=== PATIENT | female | born 1995 | race Caucasian/White ===

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

== ENCOUNTER 2021-12-02 03:51 | Inpatient (IN) | payer MEDICAID, BC ==
[~2021-12-02 03:51] MED LIST: Oxytocin/Lactated Ringers 20 UNIT/1,000 ML BAG IV SCH; ceFAZolin 2 GM in Sodium Chloride 0.9% 50 ML IV ONE
[2021-12-02] MEDS: Lactated Ringers 1,000 ML IV SCH ×2 (05:20→06:00)
[2021-12-02] MEDS ORDERED: Bupivacaine 0.5% 30 ML SDV ONE ×2 (06:36→06:55)
[2021-12-02] MEDS ORDERED: Metoclopramide 10 MG/2 ML SDV IVPUSH ONE (06:45)
[2021-12-02] MEDS ORDERED: Citric Acid/Sodium Citrate Solution 30 ML Cup PO ONE (06:45)
[2021-12-02] MEDS ORDERED: Morphine PF 10 MG/10 ML SDV ONE (06:48)
[2021-12-02] MEDS ORDERED: Ondansetron 4 MG/2 ML SDV ONE (06:53)
[2021-12-02] MEDS ORDERED: fentaNYL 100 MCG/2 ML SDV IVPUSH PRN (06:58)
[2021-12-02] MEDS ORDERED: diphenhydrAMINE 50 MG/ML SDV IVPUSH PRN ×2 (06:58→09:50)
[2021-12-02] MEDS ORDERED: Ondansetron 4 MG/2 ML SDV IVPUSH PRN (06:58)
[2021-12-02] MEDS ORDERED: Oxytocin 10 Units/1 ML SDV ONE (07:33)
[2021-12-02] MEDS ORDERED: Lactated Ringers 1,000 ML ONE ×2 (07:33)
[2021-12-02] MEDS ORDERED: ceFAZolin 1 GM Vial ONE (07:35)
[2021-12-02] MEDS ORDERED: Ketorolac 30 MG/ML SDV ONE (08:07)
[2021-12-02] MEDS ORDERED: Albuterol 6.7 GM Inhaler INH PRN (08:19)
[2021-12-02] MEDS ORDERED: Prenatal Multivitamin with Calcium/Folic Acid/Iron Tab PO SCH (09:00)
[2021-12-02] MEDS ORDERED: Ferrous Sulfate 324 MG Tab.EC PO SCH (09:00)
[2021-12-02] MEDS ORDERED: ePHEDrine 50 MG/ML SDV IVPUSH PRN (09:50)
[2021-12-02] MEDS ORDERED: Acetaminophen/oxyCODONE 325-5 MG Tab PO PRN (09:50)
[2021-12-02] MEDS ORDERED: Naloxone 0.4 MG/ML SDV IVPUSH PRN (09:50)
[2021-12-02] MEDS ORDERED: Dextrose 5%-Lactated Ringers 1,000 ML IV SCH (09:50)
[2021-12-02] MEDS ORDERED: Ondansetron 4 MG/2 ML SDV IV PRN (09:50)
[2021-12-02] MEDS: Simethicone 80 MG Tab.Chew PO SCH ×4 (11:32→22:07)
[2021-12-02] MEDS: Docusate Sodium 100 MG Cap PO SCH ×2 (11:32→22:06)
[2021-12-02] MEDS ORDERED: Ibuprofen 800 MG Tab PO SCH (14:30)
[2021-12-03] MEDS: Ibuprofen 800 MG Tab PO SCH ×3 (00:58→20:46)
[2021-12-03] MEDS: Docusate Sodium 100 MG Cap PO SCH ×3 (08:29→20:46)
[2021-12-03] MEDS: Simethicone 80 MG Tab.Chew PO SCH ×4 (08:29→20:47)
[2021-12-03] MEDS: Acetaminophen/oxyCODONE 325-5 MG Tab PO PRN ×3 (08:30→19:02)
[2021-12-04] MEDS: Docusate Sodium 100 MG Cap PO SCH ×2 (00:53→11:58)
[2021-12-04] MEDS: Acetaminophen/oxyCODONE 325-5 MG Tab PO PRN ×2 (01:23→08:54)
[2021-12-04] MEDS: Ibuprofen 800 MG Tab PO SCH ×2 (05:07→11:57)
[2021-12-04] MEDS: Simethicone 80 MG Tab.Chew PO SCH (08:54)
[2021-12-04 11:55] VITALS: BP 116/68; PULSE 62
== END 2021-12-04 10:40 | disposition home or self-care (01) | DRG 788 ==
LOC: UNDOADMIN 04:59 → JD.OB 04:59
PROVIDERS: ADMIT Obstetrics & Gynecology; ATTEND Obstetrics & Gynecology
PROC: 10D00Z1 Extraction of Products of Conception, Low, Open Approach (ICD-10-PCS; principal; 2021-12-02)
DX: O34.211 Maternal care for low transverse scar from previous cesarean delivery (principal); Z3A.39 39 weeks gestation of pregnancy; Z37.0 Single live birth; Z87.891 Personal history of nicotine dependence; O99.52 Diseases of the respiratory system complicating childbirth; J45.909 Unspecified asthma, uncomplicated; O75.89 Other specified complications of labor and delivery; F90.9 Attention-deficit hyperactivity disorder, unspecified type; O99.344 Other mental disorders complicating childbirth; F41.9 Anxiety disorder, unspecified; O99.02 Anemia complicating childbirth; D64.9 Anemia, unspecified; Z86.16 Personal history of COVID-19; Z90.49 Acquired absence of other specified parts of digestive tract
CPT/HCPCS: 01961; 36415; 59025; 85025; 86592; 86850; 86900; 86901; 94762; A9270-GY; J0690; J1885; J2274; J2590; J2765; J3490; J7120; J7121